=== PATIENT | female | born 1995 | race Caucasian/White ===

== ENCOUNTER 2016-11-20 22:51 | Emergency (ER) | payer OTHER ==
[~2016-11-20] VITALS: Ht 149.9 cm; Wt 70.0 kg
[2016-11-20 22:52] VITALS: BP 115/59; PULSE 99; RESP 20; TEMP 97.7; O2SAT 100
[2016-11-20 23:01] VITALS: BP 104/56; PULSE 86; RESP 18; TEMP 98.4; O2SAT 98
[2016-11-20] MEDS ORDERED: ASCO1CHW7 CHEW (23:01)
--- NOTE | 2016-11-20 23:28 | PD ---
HPI Chief Complaint: Chest Pain Time Seen by Provider: 23:08 Travel History International Travel<30 days: No Contact w/Intl Traveler<30days: No Traveled to known affect area: No History of Present Illness HPI The patient is 21 year old female reportedly at 23 weeks gestation who presents to the [facility] emergency department with a history of sudden onset of back pain between her shoulder blades that began approximately 30 minutes prior to arrival while she was lying down preparing to go to sleep. She reports that the pain radiated into the right shoulder, right chest and right arm. She reports that she felt short of breath with it. She denies having any lower extremity edema, calf pain, or erythema. She denies having any prior history of DVT or PE. She denies having any family history of blood clots. She reports that her is being monitored by Dr. Andrade. She reports that she has been feeling the baby move well. She denies having any vaginal bleeding or vaginal discharge. The patient reports that the pain is a squeezing sensation. She reports that it has begun to improved since arriving in the emergency department. She denies having any trauma to the area or doing any heavy lifting. She denies taking anything for pain prior to arrival. She denies any acid reflux or heartburn symptoms. The patient denies recent fevers , cough, congestion, neck pain, abdominal pain, vomiting, diarrhea, urinary symptoms, or neurologic symptoms. LMP: May 28, 2016. [facility] Past Medical History Narrative Medical The patient's past medical history is reportedly none. Medical History: Denies Significant Hx Diminished Hearing: No Influenza Vaccination: No ?: LMP: 05/28 : 1 Para: 0 Miscarriage: 0 : 0 Past Surgical History Narrative Surgical The patient denies any past surgical history. Surgical History: No Previous Surgery Social History Alcohol Use: No Tobacco Use: No Substance Use: No Allergies-Medications (Allergen,Severity, Reaction): Coded Allergies: No Known Allergies (Unverified , 11/20/16) Reported Meds & Prescriptions Reported Meds & Active Scripts Active Reported Vitamin C Adult Gummies (Ascorbic Acid) 125 Mg Chew 125 Mg CHEW DAILY Review of Systems Except as stated in HPI: all other systems reviewed are Neg General / Constitutional: No: Fever Eyes: No: Visual changes HENT: No: Headaches Cardiovascular: Positive: Chest Pain or Discomfort (right-sided), No: Palpitations, Irregular Rhythm, Tachycardia, Diaphoresis, Dyspnea on exertion, Edema Respiratory: Positive: Shortness of Breath, No: Cough, Orthopnea Gastrointestinal: No: Nausea, Vomiting, Diarrhea, Abdominal Pain, Changes in Bowel Habits, Indigestion, Loss of Appetite Genitourinary: No: Dysuria, Flank Pain, Discharge, Vaginal Bleeding Musculoskeletal: Positive: Myalgias, Pain Skin: No Rash Neurologic: No: Weakness Psychiatric: No: Depression Endocrine: No: Polydipsia Hematologic/Lymphatic: No: Easy Bruising Physical Exam Narrative General: The patient is a well-developed well-nourished female in no acute distress. The patient's heart rate is in the 70s to 80s, O2 saturation on room air is 99- 100%. Head and Neck exam: Head is normocephalic atraumatic. Eyes: Pupils are equal round and reactive to light. Nose: Midline septum with pink mucous membranes Mouth: Dentition unremarkable. Moist mucus membranes. Posterior oropharynx is not erythematous. No tonsillar hypertrophy. Uvula midline. Airway patent. Neck: No palpable lymphadenopathy. No nuchal rigidity. No thyromegaly. No spinous process tenderness to palpation, no step-off or crepitus, no erythema or ecchymosis. Cardiovascular: Regular rate and rhythm without murmurs, gallops, or rubs. No pulse deficit to the extremities. Lungs: Clear to auscultation bilaterally. No wheezes, rhonchi, or rales. Abdomen: Soft, without tenderness to palpation in all 4 quadrants of the abdomen. No guarding, rebound, or rigidity. Normal bowel sounds are audible. The patient has prominence of the lower abdomen consistent with early . No tenderness on palpation. Extremities: No clubbing, cyanosis, or edema. 2+ pulses in all 4 extremities. No calf tenderness on palpation. Negative Homans sign. No palpable cords. The patient on examination of the right arm, reports having pain that radiates into the right side of her back with flexion of her shoulder. The patient reports having triceps tenderness on palpation. Back: No spinous process tenderness to palpation. No costovertebral angle tenderness to palpation. The patient on examination is noted to have tenderness along the paraspinal muscles just medial to the right scapula. There is no spasm noted. There is no ecchymosis or erythema. Neurologic Exam: Grossly nonfocal. Skin Exam: No rash noted. Intact skin that is warm and dry. Data Data Last Documented VS Vital Signs Date Time Temp Pulse Resp B/P Pulse Ox O2 Delivery O2 Flow Rate FiO2 11/20/16 23:05 99 11/20/16 23:01 98.4 86 18 104/56 11/20/16 22:52 Room Air Orders Electrocardiogram (11/20/16 23:20) Complete Blood Count With Diff (11/20/16 23:20) Comprehensive Metabolic Panel (11/20/16 23:20) Creatine Kinase (Cpk) (11/20/16 23:20) Ckmb (Isoenzyme) Profile (11/20/16 23:20) Troponin I (11/20/16 23:20) Urinalysis - C+S If Indicated (11/20/16 23:20) Magnesium (Mg) (11/20/16 23:20) Iv Access Insert/Monitor (11/20/16 23:20) Ecg Monitoring (11/20/16 23:20) Oximetry (11/20/16 23:20) Ed Poc Ultrasound (11/20/16 23:20) Acetaminophen (Tylenol) (11/20/16 23:30) Urine Culture (11/20/16 23:15) Ceftriaxone Inj (Rocephin Inj) (11/21/16 00:45) Ed Poc Ultrasound (11/21/16 00:46) Labs Laboratory Tests Test 11/20/16 23:15 White Blood Count 13.6 TH/MM3 Red Blood Count 3.96 MIL/MM3 Hemoglobin 11.0 GM/DL Hematocrit 33.4 % Mean Corpuscular Volume 84.3 FL Mean Corpuscular Hemoglobin 27.9 PG Mean Corpuscular Hemoglobin 33.0 % Concent Red Cell Distribution Width 14.0 % Platelet Count 270 TH/MM3 Mean Platelet Volume 9.3 FL Neutrophils (%) (Auto) 65.6 % Lymphocytes (%) (Auto) 25.2 % Monocytes (%) (Auto) 7.8 % Eosinophils (%) (Auto) 1.2 % Basophils (%) (Auto) 0.2 % Neutrophils # (Auto) 8.9 TH/MM3 Lymphocytes # (Auto) 3.4 TH/MM3 Monocytes # (Auto) 1.1 TH/MM3 Eosinophils # (Auto) 0.2 TH/MM3 Basophils # (Auto) 0.0 TH/MM3 CBC Comment DIFF FINAL Differential Comment Urine Color YELLOW Urine Turbidity CLOUDY Urine pH 7.0 Urine Specific [place] 1.012 Urine Protein NEG mg/dL Urine Glucose (UA) NEG mg/dL Urine Ketones NEG mg/dL Urine Occult Blood NEG Urine Nitrite NEG Urine Bilirubin NEG Urine Urobilinogen LESS THAN 2.0 MG/DL Urine Leukocyte Esterase SMALL Urine WBC 6 /hpf Urine Squamous Epithelial 21 /hpf Cells Urine Transitional Epithelial <1 /hpf Cells Urine Amorphous Sediment OCC Urine Bacteria MANY /hpf Urine Mucus FEW /lpf Microscopic Urinalysis Comment CULTURE INDICATED Sodium Level 139 MEQ/L Potassium Level 3.5 MEQ/L Chloride Level 104 MEQ/L Carbon Dioxide Level 24.4 MEQ/L Anion Gap 11 MEQ/L Blood Urea Nitrogen 8 MG/DL Creatinine 0.49 MG/DL Estimat Glomerular Filtration 161 ML/MIN Rate Random Glucose 96 MG/DL Calcium Level 8.5 MG/DL Magnesium Level 1.6 MG/DL Total Bilirubin 0.1 MG/DL Aspartate Amino Transf 7 U/L (AST/SGOT) Alanine Aminotransferase 26 U/L (ALT/SGPT) Alkaline Phosphatase 70 U/L Total Creatine Kinase 48 U/L Troponin I LESS THAN 0.02 NG/ML Total Protein 6.8 GM/DL Albumin 3.0 GM/DL [facility] Medical Decision Making Medical Screen Exam Complete: Yes Emergency Medical Condition: Yes Medical Record Reviewed: Yes Differential Diagnosis Acute coronary syndrome, versus pulmonary embolism, versus musculoskeletal strain, versus pneumothorax, versus pleurisy Narrative Course During the course of the patients emergency department visit, the patients history, examination, and differential diagnosis were reviewed with the patient. The patient had IV access obtained and blood work sent for analysis. The patient's patient was placed on a chief of party with oximetry and blood pressure monitoring. The patient on examination is low probability for PE. The patient has no signs of a pneumothorax with a normal oxygen saturation and equal breath sounds bilaterally, therefore a chest x-ray risk outweighs the benefit in this patient who is currently . EKG done on this patient shows a normal sinus rhythm, heart rate of 83, occasional premature atrial contractions were noted, no other acute abnormality, no ST segment elevation. T waves are inverted in V1. No ST segment depression. The patient was provided Tylenol for pain. The patients laboratory studies were reviewed and remarkable for urinalysis that shows evidence of bacteriuria. The patient was given Rocephin 1 g IV. A white count of 13.6, hemoglobin 11, platelets 270 with a normal differential, CMP is remarkable for a creatinine of 0.49, total bilirubin 0.1, AST 7, CPK and troponin I within normal limits. Reexamination prior to the ultrasound, the patient was sleeping soundly. The patient reports that she feels improved. Emergency Department Pelvic ultrasound was performed with patient consent. The curvilinear probe was used in the transverse and sagittal views within the suprapubic region revealing a single intrauterine . heart rate was 140. Second trimester was noted. The baby was active on examination. The patient is resting comfortably and feels better, is alert and in no distress. The patients results and examination findings were discussed with the patient The repeat examination is unremarkable and benign. The history, exam , diagnostic testing, and current condition do not suggest any significant pathology to warrant further testing, continued ED treatment, admission, or surgical evaluation at this point. The vital signs have been stable. The patient does not have uncontrollable pain, intractable vomiting, or other significant symptoms. The patient's condition is stable and appropriate for discharge. The patient will pursue further outpatient evaluation with a primary care physician or other designated or consulting physician as indicated in the discharge instructions. The patient expressed understanding and was agreeable with this plan. Diagnosis Primary Impression: Back pain affecting Additional Impression: Bacteriuria during in second trimester Patient Instructions: General Instructions, Musculoskeletal Pain (ED), Urinary Tract Infection in (ED) Additional Instructions: Take Tylenol 650 mg by mouth every 6 hours as needed for discomfort. Follow-up with your [employer] for reexamination this week. Med/Other Pt SpecificInfo: Prescription(s) given Scripts Nitrofurantoin Monohydrate Macrocrystals (Macrobid)100 Mg [id number] Mg PO BID 10 Days Ref 0 Prov:Mackenzie Thompson MD 11/21/16 Disposition: 01 DISCHARGE HOME Condition: Stable Mackenzie Thompson MD Nov 20, 2016 23:28
[2016-11-20] MEDS ORDERED: ACETAMINOPHEN 325 MG TAB PO ONE (23:30)
[2016-11-20 23:53] LABS: AUTOMATED NEUTROPHIL # 8.9 TH/MM3 (1.8-7.7); BASOPHIL % 0.2 % (0.0-2.0); EOSINOPHIL # 0.2 TH/MM3 (0-0.4); EOSINOPHIL % 1.2 % (0.0-4.0); HEMATOCRIT 33.4 % (35.0-46.0); HEMO FLAGS DIFF FINAL; LYMPH % 25.2 % (9.0-44.0); LYMPHOCYTE # 3.4 TH/MM3 (1.0-4.8); MEAN CELL VOLUME 84.3 FL (80.0-100.0); MEAN CORPUSCULAR HEMOGLOBIN 27.9 PG (27.0-34.0); MONO % 7.8 % (0.0-8.0); NEUT % 65.6 % (16.0-70.0); PLATELET COUNT 270 TH/MM3 (150-450); RED BLOOD COUNT 3.96 MIL/MM3 (4.00-5.30); WHITE BLOOD COUNT 13.6 TH/MM3 (4.0-11.0)
[2016-11-20 23:56] LABS: BACTERIA, URINE MANY /hpf; BLOOD, URINE NEG (NEG); COMMENT (UR) CULTURE INDICATED; CULTURE IF INDICATED CULTURE INDICATED; GLUCOSE,URINE NEG (NEG); KETONE, URINE NEG (NEG); MUCUS URINE FEW /lpf (OCC); NITRITE,URINE NEG (NEG); SQUAMOUS EPITHELIAL CELL URINE 21 /hpf (0-5); TRANSITIONAL EPI CELLS, URINE <1 /hpf; URINE COLOR YELLOW (YELLW/STRAW)
[2016-11-21 00:12] LABS: ANION GAP 11 MEQ/L (5-15); AST (GOT) 7 U/L (16-38); BICARBONATE 24.4 MEQ/L (21.0-32.0); BLOOD UREA NITROGEN 8 MG/DL (7-18); CHLORIDE 104 MEQ/L (98-107); GLOMERULAR FILTRATION RATE 161 ML/MIN (>89); MAGNESIUM 1.6 MG/DL (1.5-2.5); POTASSIUM 3.5 MEQ/L (3.5-5.1); SODIUM (NA) 139 MEQ/L (136-145)
[2016-11-21 00:16] LABS: ALKALINE PHOSPHATASE 70 U/L (45-117); ALT (GPT) 26 U/L (9-42); TOTAL BILIRUBIN ADULT 0.1 MG/DL (0.2-1.0)
[2016-11-21 00:21] LABS: CREATINE KINASE 48 U/L (26-192)
[2016-11-21] MEDS ORDERED: cefTRIAXone INJ 1,000 MG in SODIUM CHLORIDE 0.9% INJ 100 ML IV ONE (00:45)
[2016-11-21] MEDS ORDERED: MACR100C2 PO (01:11)
--- NOTE | 2016-11-21 08:27 | EKG ---
Date Performed: 11/21/2016 Time Performed: 00:51:26 PTAGE: 21 years EKG: Sinus rhythm NORMAL ECG NO PREVIOUS TRACING DOCTOR: Jairo Aviles Interpretating Date/Time 11/21/2016 08:25:21
== END 2016-11-21 01:51 | disposition home or self-care (01) ==
LOC: NEPE 22:51
DX: O26.92 Pregnancy related conditions, unspecified, second trimester (principal); R82.71 Bacteriuria; M54.9 Dorsalgia, unspecified; B96.20 Unspecified Escherichia coli [E. coli] as the cause of diseases classified elsewhere; Z3A.23 23 weeks gestation of pregnancy
CPT/HCPCS: 80053; 81001; 82550; 83735; 84484; 85025; 87077; 87086; 87186; 93005; 96374; 99285; J0696

== ENCOUNTER 2016-11-26 00:49 | Emergency (ER) | payer OTHER ==
[~2016-11-26 00:49] MED LIST: ASCO1CHW7 CHEW; MACR100C2 PO
[2016-11-26 00:51] VITALS: BP 127/67; PULSE 110; RESP 20; TEMP 97.4; O2SAT 99
[2016-11-26 02:08] VITALS: BP 101/58; PULSE 90; RESP 18
[2016-11-26 02:13] LABS: AUTOMATED NEUTROPHIL # 10.4 TH/MM3 (1.8-7.7); BASOPHIL % 0.2 % (0.0-2.0); EOSINOPHIL # 0.2 TH/MM3 (0-0.4); EOSINOPHIL % 1.4 % (0.0-4.0); HEMATOCRIT 30.3 % (35.0-46.0); HEMO FLAGS DIFF FINAL; LYMPH % 18.2 % (9.0-44.0); LYMPHOCYTE # 2.6 TH/MM3 (1.0-4.8); MEAN CELL VOLUME 83.3 FL (80.0-100.0); MEAN CORPUSCULAR HEMOGLOBIN 28.5 PG (27.0-34.0); MEAN CORPUSCULAR HGB CONC 34.2 % (32.0-36.0); NEUT % 74.2 % (16.0-70.0); PLATELET COUNT 231 TH/MM3 (150-450); RED BLOOD COUNT 3.64 MIL/MM3 (4.00-5.30); RED CELL DISTRIBUTION WIDTH 13.5 % (11.6-17.2)
[2016-11-26 02:23] LABS: AMYLASE 35 U/L (25-115)
--- NOTE | 2016-11-26 02:24 | PD ---
HPI Chief Complaint Pain in the upper abdomen Date Seen: Nov 26, 2016 Time Seen: 01:37 Travel History International Travel<30 Days: No Contact w/Intl Traveler<30Days: No Known Affected Area: No History of Present Illness HPI The patient is a 21-year-old primigravida at 26 weeks gestation who presents with her second episode of upper abdominal pain like this in the last week. She states that 1 week ago she experienced the same problem where she was resting in bed and began experiencing pain in the mid upper abdomen and right upper quadrant which radiated to her back between her shoulder blades. She denies any fever, anorexia, nausea or vomiting, acholic stools, diarrhea, change in bowel or bladder habits. She denies shortness of breath, cough, hemoptysis. She has not identified any alleviating maneuvers, she reports having used no medication to alleviate symptoms and the pain is worse with palpation in the epigastrium. Her evaluation in the emergency room on 20 November included normal EKG normal CBC and CMP. She was treated at the time of discharge for urinary tract infection continues to take Macrodantin. Para: 0 : 1 Miscarriage: 0 : 0 History Past Medical History Medical History: Denies Significant Hx Past Surgical History Surgical History: No Previous Surgery Family History Family History: Negative Social History Alcohol Use: No Tobacco Use: No Substance Abuse: No Allergies-Medications (Allergen,Severity, Reaction): Coded Allergies: *MDRO Multi-Drug Resistant Organism (Verified Adverse Reaction, Unknown, ) ESBL E.Coli (urine)-11/20/16 Home Meds Active Scripts Nitrofurantoin Monohydrate Macrocrystals (Macrobid)100 Mg [id number] Mg PO BID 10 Days Ref 0 Prov:Mackenzie Thompson MD 11/21/16 Reported Medications Ascorbic Acid (Vitamin C Adult Gummies)125 Mg [id number] Mg CHEW DAILY #30 TAB Ref 0 11/20/16 Review of Systems Except as stated in HPI: all other systems reviewed are Neg Physical Exam Narrative GENERAL: Well-nourished, well-developed patient. SKIN: Warm and dry. HEAD: Normocephalic and atraumatic. EYES: No scleral icterus. No injection or drainage. ENT: No nasal drainage noted. Mucous membranes pink. Airway patent. NECK: Supple, trachea midline. No JVD. CARDIOVASCULAR: Regular rate and rhythm without murmurs, gallops, or rubs. RESPIRATORY: Breath sounds equal bilaterally. No accessory muscle use. ABDOMEN/GI: Abdomen soft, tender in the right upper quadrant and epigastrium, bowel sounds present, no rebound, no guarding Gravid to [-] weeks size Fundal Height: [25-] GENITOURINARY: External Genitalia: intact and normal in appearance BUS glands: [-] Cervix: [-] Dilatation: [-] Effacement: [-] Station: [-] Presentation: [-] Membranes: [intact or ruptured] Uterine Contractions: [-] FHT's: Category: [-] Baseline: [-150 with episode of tachycardia resolved with lateral positioning ] Reactive: [-] Variability: [Average-] Decels: [-] EXTREMITIES: No cyanosis or edema. BACK: Nontender without obvious deformity. No CVA tenderness. NEUROLOGICAL: Awake and alert. Motor and sensory grossly within normal limits. Five out of 5 muscle strength in all muscle groups. Normal speech. MDM Medical Record Reviewed: Yes Narrative Course / MDM Assessment: 26 week intrauterine with upper abdominal and right upper quadrant pain radiating to the back of uncertain origin. I'm concerned that there may be an intra-abdominal process evolving. Less likely would be cardiac or pulmonary embolism events. Plan: Repeat CBC, CMP, amylase, lipase, abdominal ultrasound. Addendum: The patient is reporting significant improvement in her symptoms and is now sleeping. Addendum: The patient remains completely asymptomatic. The CBC was unremarkable. Amylase and lipase are both normal. The abdominal ultrasound does confirm the presence of gallstones without inflammatory changes. I reviewed the implications of gallstones and the need for follow-up. Arrest patient to contact Dr. Andrade for possible general surgical referral. We discussed dietary restrictions to hopefully avoid additional attacks. Warning signs were reviewed with the patient. She expressed understanding of the situation and her questions were answered. Diagnosis Diagnosis: Primary Impression: 26 weeks gestation of Additional Impression: Cholelithiasis affecting in second trimester, antepartum Disposition: 01 DISCHARGE HOME Condition: Good Adal Chambers MD Nov 26, 2016 02:24
[2016-11-26 02:42] LABS: BACTERIA, URINE OCC /hpf; BLOOD, URINE NEG (NEG); COMMENT (UR) CULT NOT INDICATED; CULTURE IF INDICATED CULT NOT INDICATED; GLUCOSE,URINE NEG (NEG); KETONE, URINE NEG (NEG); NITRITE,URINE NEG (NEG); SQUAMOUS EPITHELIAL CELL URINE 6 /hpf (0-5); URINE COLOR YELLOW (YELLW/STRAW)
[2016-11-26 02:58] VITALS: BP 100/59; PULSE 92; RESP 16
--- NOTE | 2016-11-26 05:09 | RADRPT ---
EXAM DATE/TIME: 11/26/2016 03:56 [facility] COMPARISON: No previous studies available for comparison. INDICATIONS : Epigastric and right upper quadrant pain radiating to chest and back. MEDICAL HISTORY : . 26 weeks gestation. Abdominal pain. SURGICAL HISTORY : None. ENCOUNTER: Initial ACUITY: 1 week PAIN SCORE: 5/10 LOCATION: Right upper quadrant and epigastric. MEASUREMENTS: LIVER: 15.8 cm length COMMON DUCT: 5 mm RIGHT KIDNEY: 13.6 x 4.8 x 5.1 cm LEFT KIDNEY: 13.2 x 5.3 x 5.7 cm SPLEEN: 12.8 cm length AORTA: 1.7cm maximal FINDINGS: Ultrasound of the upper abdomen demonstrates normal echogenicity of the liver. No intrahepatic or ext ra hepatic ductal dilatation is seen. There is hepatopedal flow through the portal vein. The pancrea s is not visualized secondary to overlying bowel gas. There are multiple stones within the gallbladde r without wall thickening or pericholecystic fluid the largest measuring 8 mm. There is mild bilatera l hydronephrosis in this 26 week patient likely physiologic. The spleen is normal in size an d free of focal defects. The visualized portion of the aorta and inferior vena cava are unremarkable. CONCLUSION: 1. Cholelithiasis without ductal dilatation. Walt Chu MD on November 26, 2016 at 5:03 Board Certified Radiologist. This report was verified electronically.
== END 2016-11-26 08:25 | disposition home or self-care (01) ==
LOC: HOBED 00:49
DX: O99.612 Diseases of the digestive system complicating pregnancy, second trimester (principal); K80.20 Calculus of gallbladder without cholecystitis without obstruction; Z3A.26 26 weeks gestation of pregnancy
CPT/HCPCS: 76700; 81001; 82150; 83690; 85025; 96360; 96361

== ENCOUNTER 2017-02-19 04:41 | Emergency (ER) | payer OTHER ==
--- NOTE | 2017-02-19 05:15 | PD ---
HPI Chief Complaint upper abdominal pain Date Seen: Feb 19, 2017 Time Seen: 05:13 Travel History International Travel<30 Days: No Contact w/Intl Traveler<30Days: No Known Affected Area: No History of Present Illness HPI This is a 21y/o at 38w1d who presents to the [facility] with upper abdominal tenderness, denies nausea/vomiting, no aggravating/alleviating factors. She had been diagnosed with gallstones in 11/2016 and was seen here for evaluation. She has not been seen by a general surgeon as yet. Pt denies vaginal bleeding, contractions or leakage of fluid with reports of active movements. Para: 0 : 1 Miscarriage: 0 : 0 History Past Medical History Narrative Medical Cholithiasis diagnosed in November Medical History: Denies Significant Hx Past Surgical History Surgical History: No Previous Surgery Family History Family History: Negative Social History Alcohol Use: No Tobacco Use: No Substance Abuse: No Allergies-Medications (Allergen,Severity, Reaction): Coded Allergies: *MDRO Multi-Drug Resistant Organism (Verified Adverse Reaction, Unknown, ) ESBL E.Coli (urine)-11/20/16 Home Meds Active Scripts Nitrofurantoin Monohydrate Macrocrystals (Macrobid)100 Mg [id number] Mg PO BID 10 Days Ref 0 Prov:Mackenzie Thompson MD 11/21/16 Reported Medications Ascorbic Acid (Vitamin C Adult Gummies)125 Mg [id number] Mg CHEW DAILY #30 TAB Ref 0 11/20/16 Review of Systems Except as stated in HPI: all other systems reviewed are Neg Physical Exam Narrative GENERAL: Well-nourished, well-developed patient, writhing around in pain SKIN: Warm and dry. HEAD: Normocephalic and atraumatic. EYES: No scleral icterus. No injection or drainage. ENT: No nasal drainage noted. Mucous membranes pink. Airway patent. NECK: Supple, trachea midline. No JVD. CARDIOVASCULAR: Regular rate and rhythm without murmurs, gallops, or rubs. RESPIRATORY: Breath sounds equal bilaterally. No accessory muscle use. BREASTS: Bilateral exam showed no masses , no retractions, no nipple discharge. ABDOMEN/GI: Abdomen soft, tender to minimal touch at the ruq, bowel sounds present, no rebound, no guarding Fundal height: 37cm GENITOURINARY: VE: c/s/p FHT's: Category: 1 tracing, active fetus Contractions: some irritability, no contractions EXTREMITIES: No cyanosis or edema. BACK: Nontender without obvious deformity. No CVA tenderness. NEUROLOGICAL: Awake and alert. Motor and sensory grossly within normal limits. Five out of 5 muscle strength in all muscle groups. Normal speech. Data Data Vital Signs Reviewed: Yes Orders Vital Signs (Adult) .ON ADMISSION (02/19/17 05:10) ^ Labor Status (02/19/17 05:10) Urinalysis - C+S If Indicated (02/19/17 05:10) ^ Non Stress Test (02/19/17 05:10) Cbc No Diff, Includes Plts (02/19/17 05:10) Comprehensive Metabolic Panel (02/19/17 05:10) Uric Acid (02/19/17 05:10) Protein Creat Ratio, Random Ur (02/19/17 05:10) Ed Poc Ultrasound (02/19/17 05:12) Labs Laboratory Tests Test 02/19/17 02/19/17 04:50 05:20 Urine Color YELLOW Urine Turbidity CLOUDY Urine pH 6.5 Urine Specific [place] 1.019 Urine Protein TRACE mg/dL Urine Glucose (UA) NEG mg/dL Urine Ketones NEG mg/dL Urine Occult Blood NEG Urine Nitrite NEG Urine Bilirubin NEG Urine Urobilinogen LESS THAN 2.0 MG/DL Urine Leukocyte Esterase MOD Urine RBC 1 /hpf Urine WBC 3 /hpf Urine Squamous Epithelial 61 /hpf Cells Urine Bacteria MANY /hpf Urine Mucus FEW /lpf Microscopic Urinalysis Comment CULTURE INDICATED Urine Random Creatinine 126 MG/DL Urine Random Total Protein 37 MG/DL Urine Protein/Creatinine Ratio 0.29 White Blood Count 11.7 TH/MM3 Red Blood Count 4.08 MIL/MM3 Hemoglobin 11.1 GM/DL Hematocrit 33.6 % Mean Corpuscular Volume 82.5 FL Mean Corpuscular Hemoglobin 27.2 PG Mean Corpuscular Hemoglobin 32.9 % Concent Red Cell Distribution Width 13.3 % Platelet Count 222 TH/MM3 Mean Platelet Volume 8.9 FL Sodium Level 139 MEQ/L Potassium Level 3.9 MEQ/L Chloride Level 108 MEQ/L Carbon Dioxide Level 21.7 MEQ/L Anion Gap 9 MEQ/L Blood Urea Nitrogen 10 MG/DL Creatinine 0.55 MG/DL Estimat Glomerular Filtration 141 ML/MIN Rate Random Glucose 82 MG/DL Uric Acid 5.0 MG/DL Calcium Level 8.5 MG/DL Total Bilirubin 0.3 MG/DL Aspartate Amino Transf 17 U/L (AST/SGOT) Alanine Aminotransferase 22 U/L (ALT/SGPT) Alkaline Phosphatase 118 U/L Total Protein 6.3 GM/DL Albumin 2.8 GM/DL Amylase Level 36 U/L Lipase 84 U/L Ultrasound: no gallstones, no gallbladder thickening, mild sludge noted MDM Medical Record Reviewed: Yes Interpretation(s) routine course with gallstones which have now resolved Plan 21y/o at 38w1d who presented with severe RUQ pain, likely passage of gallstones but no gallbladder wall thickening noted on ultrasound -normal RUQ ultrasound, previously gallstones seen in 11/2016 -no evidence of labor -reassuring status -PCR of 0.29 -normal blood pressures -UTI, will treat, f/u urine cultures due to h/o MDRO Diagnosis Diagnosis: Primary Impression: RUQ abdominal pain Additional Impression: UTI (urinary tract infection) in in third trimester Disposition: 01 DISCHARGE HOME Scripts Nitrofurantoin Monohydrate Macrocrystals (Macrobid)100 Mg [id number] Mg PO BID 7 Days Ref 0 Prov:Cristina Saleh MD 02/19/17 Patient Instructions: Early Labor Signs (ED) Additional Instructions: F/u with Dr. Andrade on Monday as scheduled Cristina Saleh MD Feb 19, 2017 05:15
[2017-02-19 05:34] VITALS: BP 114/69; PULSE 78
[2017-02-19 05:34] LABS: HEMATOCRIT 33.6 % (35.0-46.0); MEAN CELL VOLUME 82.5 FL (80.0-100.0); MEAN CORPUSCULAR HEMOGLOBIN 27.2 PG (27.0-34.0); MEAN CORPUSCULAR HGB CONC 32.9 % (32.0-36.0); PLATELET COUNT 222 TH/MM3 (150-450); RED BLOOD COUNT 4.08 MIL/MM3 (4.00-5.30); RED CELL DISTRIBUTION WIDTH 13.3 % (11.6-17.2); REVIEW FLAG FINAL; WHITE BLOOD COUNT 11.7 TH/MM3 (4.0-11.0)
[2017-02-19 05:43] LABS: BACTERIA, URINE MANY /hpf; BLOOD, URINE NEG (NEG); COMMENT (UR) CULTURE INDICATED; CULTURE IF INDICATED CULTURE INDICATED; GLUCOSE,URINE NEG (NEG); KETONE, URINE NEG (NEG); MUCUS URINE FEW /lpf (OCC); NITRITE,URINE NEG (NEG); PH, URINE 6.5 (5.0-8.5); SQUAMOUS EPITHELIAL CELL URINE 61 /hpf (0-5); URINE COLOR YELLOW (YELLW/STRAW)
[2017-02-19 05:56] LABS: ALT (GPT) 22 U/L (9-42); ANION GAP 9 MEQ/L (5-15); AST (GOT) 17 U/L (16-38); BICARBONATE 21.7 MEQ/L (21.0-32.0); BLOOD UREA NITROGEN 10 MG/DL (7-18); CHLORIDE 108 MEQ/L (98-107); GLOMERULAR FILTRATION RATE 141 ML/MIN (>89); POTASSIUM 3.9 MEQ/L (3.5-5.1); SODIUM (NA) 139 MEQ/L (136-145)
[2017-02-19 05:58] LABS: ALKALINE PHOSPHATASE 118 U/L (45-117); TOTAL BILIRUBIN ADULT 0.3 MG/DL (0.2-1.0)
[2017-02-19 06:12] LABS: AMYLASE 36 U/L (25-115)
[2017-02-19] MEDS ORDERED: ONDANSETRON HCL 4 MG/2 ML VIAL IV PUSH ONE (06:30)
[2017-02-19] MEDS ORDERED: MORPHINE SULFATE 4 MG/ML INJ IV PUSH ONE ×2 (06:30→08:00)
--- NOTE | 2017-02-19 07:26 | RADRPT ---
EXAM DATE/TIME: 02/19/2017 06:38 [facility] COMPARISON: No previous studies available for comparison. INDICATIONS : Right upper quadrant pain. MEDICAL HISTORY : . MDRO. Gallstones. 37 weeks . SURGICAL HISTORY : None. ENCOUNTER: Subsequent ACUITY: 1 day PAIN SCORE: 9/10 LOCATION: Right upper quadrant MEASUREMENTS: LIVER: 15.9 cm length COMMON DUCT: 3 mm RIGHT KIDNEY: 12.7 x 6.0 x 5.4 cm FINDINGS: LIVER: Normal echotexture without focal lesion or ductal dilatation. COMMON DUCT: No intraluminal mass or stone visualized. GALLBLADDER: Contains no stones, demonstrates no wall thickening or pericholecystic fluid. The mild gallbladder s ludge. PANCREAS: The bowel gas obscures much of the pancreas. RIGHT KIDNEY: No evidence of hydronephrosis, stone, or mass. There is physiologic prominence of the renal pelvis s econdary to the patient's . CONCLUSION: No significant abnormality seen. Maria T Stinson MD on February 19, 2017 at 7:21 Board Certified Radiologist. This report was verified electronically.
[2017-02-19] MEDS ORDERED: MACR100C2 PO (07:44)
[2017-02-19 07:46] VITALS: BP 99/59; PULSE 82; RESP 18; TEMP 97.9
== END 2017-02-19 08:07 | disposition home or self-care (01) ==
LOC: HOBED 04:41
DX: O23.43 Unspecified infection of urinary tract in pregnancy, third trimester (principal); R10.11 Right upper quadrant pain; Z3A.38 38 weeks gestation of pregnancy
CPT/HCPCS: 59025; 76705; 80053; 81001; 82150; 82570; 83690; 84156; 84550; 85027; 87086; 96361; 96374; 96375; 99284; J2270; J2405

== ENCOUNTER → 2017-03-08 | Emergency (ER) | payer OTHER ==
[~2017-03-08] MED LIST changes: +IBUP-232 PO; +PREN29TA PO
[2017-03-08 12:22] VITALS: BP 101/59; PULSE 85
[2017-03-08 12:24] VITALS: RESP 18; TEMP 98.2
--- NOTE | 2017-03-08 12:38 | PD ---
HPI Chief Complaint decreased FM today Date Seen: Mar 08, 2017 Travel History International Travel<30 Days: No Contact w/Intl Traveler<30Days: No History of Present Illness HPI 21 yo @ 39w2d with CHERRY 03-13-2017. care with Dr. Andrade. Uncomplicated . Patient c/o +FM but decreased this AM. Denies UC, LOF VB. History Past Medical History Narrative Medical migraines Obstetric History Obstetric History Past Surgical History Surgical History: No Previous Surgery Family History Family History: Negative Social History Alcohol Use: No Tobacco Use: No Substance Abuse: No Allergies-Medications (Allergen,Severity, Reaction): Coded Allergies: *MDRO Multi-Drug Resistant Organism (Verified Adverse Reaction, Unknown, ) ESBL E.Coli (urine)-11/20/16 Home Meds Active Scripts Nitrofurantoin Monohydrate Macrocrystals (Macrobid)100 Mg [id number] Mg PO BID 7 Days Ref 0 Prov:Cristina Saleh MD 02/19/17 Nitrofurantoin Monohydrate Macrocrystals (Macrobid)100 Mg [id number] Mg PO BID 10 Days Ref 0 Prov:Mackenzie Thompson MD 11/21/16 Reported Medications Ascorbic Acid (Vitamin C Adult Gummies)125 Mg [id number] Mg CHEW DAILY #30 TAB Ref 0 11/20/16 Review of Systems General / Constitutional: No: Fever, Chills Eyes: No: Blurred Vision, Visual changes HENT: No: Headaches, Lightheadedness Cardiovascular: No: Chest Pain or Discomfort, Palpitations Respiratory: No: Cough, Short of Breath Gastrointestinal: No: Nausea, Diarrhea, Abdominal Pain Genitourinary: No: Urgency, Vaginal Bleeding Musculoskeletal: No: Limited ROM, Edema Skin: No Rash Neurologic: No: Weakness, Focal Abnormalities Physical Exam Vital Signs Date Time Temp Pulse Resp B/P Pulse Ox O2 Delivery O2 Flow Rate FiO2 03/08/17 12:24 98.2 18 03/08/17 12:22 85 101/59 Narrative GENERAL: Well-nourished, well-developed patient. NAD SKIN: Warm and dry. HEAD: Normocephalic and atraumatic. EYES: No scleral icterus. No injection or drainage. ENT: No nasal drainage noted. Mucous membranes pink. Airway patent. CARDIOVASCULAR: Regular rate VSS RESPIRATORY: No accessory muscle use. ABDOMEN/GI: Abdomen soft, non-tender,no rebound, no guarding Gravid GENITOURINARY: External Genitalia: intact and normal in appearance BUS glands: [-] Cervix: [-] Dilatation: [-] Effacement: [-] Station: [-] Presentation: [-] Membranes: [intact or ruptured] Uterine Contractions: [-] FHT's: Category: I Baseline: 120 Reactive: +accelerations Variability: mod Decels: [-] EXTREMITIES: No cyanosis or edema. BACK: Normal ROM NEUROLOGICAL: Awake and alert. Motor and sensory grossly within normal limits. Normal speech. Data Data Vital Signs Reviewed: Yes Orders Vital Signs (Adult) .ON ADMISSION (03/08/17 12:15) ^ Labor Status (03/08/17 12:15) ^ Non Stress Test (03/08/17 12:15) MDM Interpretation(s) BEDSIDE US: LEIGHANN 12.9cm Cephalic lie Narrative Course / MDM 39 weeks Uncomplicated decreased FM today CAT I - reactive NST LEIGHANN 12.9cm No s/s labor or UC +FM normal at this time Plan D/c home Kick counts hydrations f/u with Dr. Andrade for KATERIN Diagnosis Diagnosis: Primary Impression: Decreased movement affecting management of in third trimester Additional Impressions: 39 weeks gestation of NST (non-stress test) reactive Cori Carrasco MD Mar 08, 2017 12:38
== END | disposition home or self-care (01) ==
LOC: HOBED 12:05
DX: O36.8130 Decreased fetal movements, third trimester, not applicable or unspecified (principal); Z3A.39 39 weeks gestation of pregnancy
CPT/HCPCS: 59025; 76815

== ENCOUNTER 2017-03-20 08:51 | Inpatient (IN) | payer OTHER ==
[2017-03-20] VITALS (86 sets, daily range): BP systolic 87–120; BP diastolic 45–86; PULSE 65–119; RESP 18; TEMP 97.4–98.7
[~2017-03-20] VITALS: Ht 149.9 cm; Wt 78.9 kg
[~2017-03-20 08:51] MED LIST changes: -IBUP-232 PO; -PREN29TA PO
[2017-03-20] MEDS ORDERED: PREN29TA PO (09:54)
[2017-03-20] MEDS ORDERED: LACTATED RINGER'S 1000 ML INJ 1,000 ML IV PRN (09:56)
[2017-03-20] MEDS ORDERED: OXYTOCIN 30 UNITS-500ML PREMIX 500 ML IV ONE ×2 (10:00→19:00)
[2017-03-20] MEDS ORDERED: CITRIC ACID-SODIUM CITRATE LIQ 30 ML UDC PO SCH (10:00)
[2017-03-20] MEDS ORDERED: SODIUM CHLORID 0.9% 500 ML INJ 500 ML IV PRN (10:00)
[2017-03-20] MEDS ORDERED: LIDOCAINE HCL 1% 50 ML VIAL INFIL PRN (10:00)
[2017-03-20] MEDS ORDERED: LIDOCAINE HCL 1% 50 ML VIAL I-DERMAL PRN (10:00)
[2017-03-20] MEDS ORDERED: MINERAL OIL 10 ML VIAL TOPICAL PRN (10:00)
[2017-03-20] MEDS ORDERED: OXYTOCIN 30 UNITS-500ML PREMIX 500 ML IV SCH (10:00)
[2017-03-20] MEDS ORDERED: ONDANSETRON HCL 4 MG/2 ML VIAL IV PRN (10:00)
[2017-03-20] MEDS ORDERED: SODIUM CHLOR 0.9% 1000 ML INJ 1,000 ML IV PRN (10:16)
[2017-03-20 10:17] LABS: BASOPHIL % 0.5 % (0.0-2.0); EOSINOPHIL # 0.1 TH/MM3 (0-0.4); EOSINOPHIL % 1.1 % (0.0-4.0); HEMO FLAGS DIFF FINAL; LYMPH % 24.8 % (9.0-44.0); LYMPHOCYTE # 2.2 TH/MM3 (1.0-4.8); MEAN CELL VOLUME 80.7 FL (80.0-100.0); MEAN CORPUSCULAR HGB CONC 32.3 % (32.0-36.0); MONO % 6.3 % (0.0-8.0); NEUT % 67.3 % (16.0-70.0); PLATELET COUNT 206 TH/MM3 (150-450); RED BLOOD COUNT 4.33 MIL/MM3 (4.00-5.30); RED CELL DISTRIBUTION WIDTH 13.7 % (11.6-17.2); WHITE BLOOD COUNT 8.9 TH/MM3 (4.0-11.0)
[2017-03-20 10:27] LABS: BACTERIA, URINE MOD /hpf; BLOOD, URINE NEG (NEG); COMMENT (UR) CULTURE INDICATED; CULTURE IF INDICATED CULTURE INDICATED; GLUCOSE,URINE NEG (NEG); KETONE, URINE NEG (NEG); MUCUS URINE FEW /lpf (OCC); NITRITE,URINE NEG (NEG); PH, URINE 6.5 (5.0-8.5); SQUAMOUS EPITHELIAL CELL URINE 37 /hpf (0-5); TRANSITIONAL EPI CELLS, URINE <1 /hpf; URINE COLOR YELLOW (YELLW/STRAW)
[2017-03-20] MEDS: LACTATED RINGER'S 1000 ML INJ 1,000 ML IV SCH ×2 (10:31→15:17)
[2017-03-20] MEDS ORDERED: fentaNYL 2MCG-BUPIV 0.125% INJ 100 ML ONE (13:59)
[2017-03-20] MEDS ORDERED: ePHEDrine/NS 25 MG/5 ML SYR ONE (13:59)
[2017-03-20] MEDS ORDERED: ePHEDrine/NS 25 MG/5 ML SYR IV PRN (15:00)
[2017-03-20] MEDS ORDERED: fentaNYL 2MCG-BUPIV 0.125% 100 ML EPIDURAL SCH (15:00)
[2017-03-20] MEDS ORDERED: DO NOT ADMINISTER ANTICOAGULANTS PRN (15:00)
[2017-03-20] MEDS ORDERED: NO SYSTEM NARCOTICS PRN (15:00)
[2017-03-20] MEDS ORDERED: DIPHTH/TETANUS/ACEL PERTUSSIS (BOOSTER) 0.5 ML VIAL/PFS IM ONE (16:00)
[2017-03-20] MEDS ORDERED: MEASLES, MUMPS, RUBELLA VACCINE 0.5 ML VIAL SQ ONE (16:00)
--- NOTE | 2017-03-20 16:18 | MH ---
cc: Yuni ANDRADE MD DATE OF ADMISSION: 03/20/2017 REASON FOR ADMISSION 1. Intrauterine at 41 weeks. 2. Postdates. 3. Inducible cervix. HISTORY OF PRESENT ILLNESS Ms. Olivares is a 21-year-old white female, para 0-0-0-0, who is 41 weeks by early ultrasound and dates. She presents to the labor floor for induction of labor with artificial rupture of membranes and possibly Pitocin because of postdates. She denies any ___ uterine contractions. She denies any bleeding or rupture of membranes. She reports good movement. PAST OBSTETRICAL HISTORY Para 0-0-0-0. PAST GYNECOLOGIC HISTORY Her cultures were negative in 11 of 16. PAST MEDICAL HISTORY Her past medical history is remarkable for a UTI in , anemia. PAST SURGICAL HISTORY Negative. SOCIAL HISTORY She is . She never smoked. She never drank. 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 She lives with her spouse. FAMILY HISTORY She is adopted. ALLERGIES No known drug allergies. MEDICATIONS Current medications are vitamins one p.o. q. Day. Iron one p.o. b.i.d. PHYSICAL EXAMINATION GENERAL: Her physical exam reveals a well-developed, well-nourished female, in no acute distress. CHEST: Chest is clear to auscultation and percussion. HEART: Heart has a regular rate and rhythm without murmur. ABDOMEN: The abdomen is gravid, nontender. Fundus is nontender. CERVIX: Her cervix on admission is 2-3, 80% vertex -2. EXTREMITIES: No clubbing, cyanosis, edema. ASSESSMENT/PLAN 1. Intrauterine at 41 weeks. 2. Inducible cervix. Go ahead and give her artificial rupture of membranes and maybe give her some Pitocin to try to accomplish a vaginal delivery. I think her pelvis is adequate, although she is somewhat short stature. 3. GBS is negative. Yuni Andrade MD RJV/TLL /1:59 PM /3:49 PM
--- NOTE | 2017-03-20 18:50 | PD.OB.DELI ---
Delivery Date: March 20, 2017 Anesthesia: Epidural Episiotomy: Midline Vaginal Delivery: Normal Presentation: Occiput anterior Nuchal Cord: None Delayed cord clamping (45 sec): Yes One Minute : 8 Five Minute : 9 Weight: 7/0 Placenta: Spontaneous delivery, Intact, 3 vessel cord Laceration: Episiotomy, 2 deg Repair: Vicryl running Additional Information Very nice delivery of baby Armstrong. Small 2nd degree episiotomy repaired to perfection. \ both grandmas and Antonietta were in the room. Yuni Andrade MD March 20, 2017 18:50
[2017-03-20] MEDS ORDERED: ALUMINUM/MAGNESIUM/SIMETH 30 ML CUP PO PRN (19:00)
[2017-03-20] MEDS ORDERED: BENZOCAINE 20% TOPICAL SPRAY 60 ML CAN TOPICAL PRN (19:00)
[2017-03-20] MEDS ORDERED: WITCH HAZEL 50%/GLYCERIN 12.5% 40 PAD JAR TOPICAL PRN (19:00)
[2017-03-20] MEDS ORDERED: DOCUSATE SODIUM 50 MG/SENNA 8.6 MG TAB PO PRN (19:00)
[2017-03-20] MEDS ORDERED: ONDANSETRON ODT 4 MG TAB PO PRN (19:00)
[2017-03-20] MEDS ORDERED: ACETAMINOPHEN 325 MG TAB PO PRN (19:00)
[2017-03-20] MEDS ORDERED: SODIUM CHLORIDE 0.9% FLUSH 10 ML FLUSH IV FLUSH PRN (19:00)
[2017-03-20] MEDS ORDERED: ZOLPIDEM TARTRATE 5 MG TAB PO PRN (19:00)
[2017-03-20] MEDS ORDERED: oxyCODONE/ACETAMINOPHEN 5 MG/325 MG TAB PO PRN ×2 (19:00)
[2017-03-20] MEDS ORDERED: SODIUM CHLORIDE 0.9% FLUSH 10 ML FLUSH IV FLUSH SCH (21:00)
[2017-03-20] MEDS: IBUPROFEN 600 MG TAB PO PRN (21:54)
[2017-03-21] MEDS: IBUPROFEN 600 MG TAB PO PRN (05:07)
[2017-03-21 08:00] VITALS: BP 89/53; PULSE 74; RESP 16; TEMP 98.2
[2017-03-21] MEDS: PRENATAL VITAMIN CHEWABLE TAB PO SCH (09:29)
--- NOTE | 2017-03-21 13:35 | HHI.OB ---
Subjective Post Day: 1 Objective Vitals/I&O Vital Signs Date Time Temp Pulse Resp B/P Pulse Ox O2 Delivery O2 Flow Rate FiO2 03/21/17 08:00 98.2 74 16 89/53 03/20/17 20:35 98.1 74 18 107/63 03/20/17 20:01 96 103/61 03/20/17 20:00 18 03/20/17 19:46 94 89/68 03/20/17 19:45 18 03/20/17 19:31 108 117/55 03/20/17 19:30 18 03/20/17 19:15 97.4 88 18 107/65 03/20/17 19:01 96 110/56 03/20/17 18:41 98.7 03/20/17 18:32 18 03/20/17 17:35 82 03/20/17 17:30 119 120/67 03/20/17 17:30 98 03/20/17 17:25 73 03/20/17 17:20 88 03/20/17 17:15 84 112/68 03/20/17 17:15 72 03/20/17 17:05 75 03/20/17 17:00 73 03/20/17 17:00 81 107/56 03/20/17 16:55 86 03/20/17 16:50 84 03/20/17 16:45 76 98/61 03/20/17 16:45 77 03/20/17 16:40 76 03/20/17 16:35 76 03/20/17 16:30 81 95/74 03/20/17 16:30 77 03/20/17 16:25 76 03/20/17 16:20 87 03/20/17 16:15 90 97/64 03/20/17 16:15 77 03/20/17 16:11 78 105/67 03/20/17 16:05 74 03/20/17 16:02 72 87/45 03/20/17 16:01 70 03/20/17 16:00 75 03/20/17 15:50 76 03/20/17 15:45 86 99/62 03/20/17 15:45 76 03/20/17 15:40 83 03/20/17 15:35 85 03/20/17 15:30 98.1 03/20/17 15:30 79 98/58 03/20/17 15:30 79 03/20/17 15:18 18 03/20/17 15:15 82 03/20/17 15:15 79 100/59 03/20/17 15:11 82 102/63 03/20/17 15:10 81 03/20/17 15:05 77 03/20/17 15:00 71 03/20/17 15:00 87 114/66 03/20/17 14:47 78 112/56 03/20/17 14:45 80 03/20/17 14:42 73 113/57 03/20/17 14:40 87 03/20/17 14:37 96 101/70 03/20/17 14:35 81 03/20/17 14:30 77 107/65 03/20/17 14:30 82 03/20/17 14:26 70 113/55 03/20/17 14:25 90 03/20/17 14:20 89 03/20/17 14:15 83 03/20/17 14:10 88 03/20/17 14:05 78 03/20/17 14:00 71 03/20/17 13:50 97 03/20/17 13:45 81 03/20/17 13:40 74 03/20/17 13:35 86 Objective Remarks GENERAL: Well-nourished, well-developed patient. CARDIOVASCULAR: Regular rate and rhythm without murmurs, gallops, or rubs. RESPIRATORY: Breath sounds equal bilaterally. No accessory muscle use. ABDOMEN/GI: Abdomen soft, non-tender. Fundus: Firm, non-tender at umbilicus. GENITOURINARY: Light to moderate bleeding. EXTREMITIES: No cyanosis or edema, non-tender, without signs of DVT. Medications and IVs Current Medications Medications (Trade) Dose Ordered Sig/Agnieszka Route Start Time Stop Time Status Last Admin (NS Flush) 2 ml BID IV FLUSH 03/20/17 21:00 (NS Flush) 2 ml UNSCH PRN IV FLUSH 03/20/17 19:00 (Tylenol) 650 mg Q4H PRN PO 03/20/17 19:00 (Motrin) 600 mg Q6H PRN PO 03/20/17 19:00 03/21/17 05:07 (Percocet 5-325 Mg) 1 tab Q4H PRN PO 03/20/17 19:00 (Percocet 5-325 Mg) 2 tab Q4H PRN PO 03/20/17 19:00 (Americaine 20% Top Spr) 1 spray Q4H PRN TOPICAL 03/20/17 19:00 03/20/17 21:53 (Tucks Pads) 1 applic QID PRN TOPICAL 03/20/17 19:00 03/20/17 21:53 (Sheri-Colace) 2 tab Q12H PRN PO 03/20/17 19:00 03/20/17 21:56 (Ambien) 5 mg HS PRN PO 03/20/17 19:00 (Mag-Al Plus Susp Liq) 15 ml Q8H PRN PO 03/20/17 19:00 (Zofran Odt) 4 mg Q6H PRN PO 03/20/17 19:00 Non-Formulary Medication 1 tab DAILY PO 03/21/17 09:00 UNV Assessment/Plan Problem List: (1) Normal vaginal delivery Plan: ROUTINE Assessment and Plan PT DOING WELL BONDING AND PAIN WELL MANAGED WITH MOTRIN ROUTINE CARE Discharge Planning DC HOME TOMORROW Johana Clements March 21, 2017 13:35
--- NOTE | 2017-03-21 13:37 | HHI.DCPOC ---
Discharge Care Plan Diagnosis: (1) Normal vaginal delivery Your Health Problems Are: Vaginal delivery Report Symptoms to Your Doctor -Temperate above 100.5 degrees -Redness, of incision or excessive or foul smelling drainage -Unusual pain or calf pain -Increased vaginal bleeding -Painful or difficulty urinating -Feelings of extreme sadness or anxiety after 2 weeks Goals to Promote Your Health * To prevent worsening of your condition and complications * To maintain your health at the optimal level Directions to Meet Your Goals Take your medications as prescribed Follow your dietary instruction Follow activity as directed Ensure plenty of rest for recovery Drink fluids for hydration Keep your appointments as scheduled Take your immunizations and boosters as scheduled If your symptoms worsen call your PCP, if no PCP go to Urgent Care Center or Emergency Room Smoking is Dangerous to Your Health. Avoid second hand smoke Call the 24-hour crisis hotline for domestic abuse at Johana Clements March 21, 2017 13:37
--- NOTE | 2017-03-21 13:39 | HHI.DS ---
Admission Date March 20, 2017 at 08:51 Discharge Date: March 22, 2017 Admitting Diagnosis TERM INDUCTION Diagnosis: Delivery Date: March 20, 2017 Vaginal Delivery: Normal : Female Brief History 41 WEEK INDUCTION Hospital Course ROUTINE Pt Condition on Discharge: Good Discharge Disposition: Discharge Home Discharge Instructions Diet Instructions: As Tolerated, No Restrictions Additional Diet Instructions: Drink at least 8 - 16 oz bottles of water a day Activities You Can Perform: Shower Only-No Bath, Sitz Bath Activities to Avoid: Lifting/Bending, Sexual Activity Additional Activity Instruc.: No driving until off pain medications Do not lift anything heavier than your baby in an infant carrier Follow up Referrals: AGRONOMY RESEARCH MANAGER - [address] [facility] New Medications: Ibuprofen (Ibuprofen) 600 Mg Tab 600 MG PO Q6H moderate pain #30 Ref 1 TAB Continued Medications: Vit-Iron Carbonyl ( Plus Iron 29-1 mg) 1 Tab Tab 1 TAB PO DAILY Nutritional Supplement #30 Ref 0 TAB Johana Clements March 21, 2017 13:39
[2017-03-21 15:20] VITALS: BP 102/56; PULSE 67; RESP 18; TEMP 98.4
[2017-03-21 20:00] VITALS: BP 109/57; PULSE 85; RESP 19; TEMP 98.7
[2017-03-22] MEDS ORDERED: IBUP-232 PO (08:29)
[2017-03-22] MEDS: PRENATAL VITAMIN CHEWABLE TAB PO SCH (09:17)
--- NOTE | 2017-03-22 09:25 | HHI.OB ---
Subjective Post Day: 2 Objective Vitals/I&O Vital Signs Date Time Temp Pulse Resp B/P Pulse Ox O2 Delivery O2 Flow Rate FiO2 03/21/17 20:00 98.7 03/21/17 20:00 85 19 109/57 03/21/17 15:20 98.4 67 18 03/21/17 15:20 102/56 Objective Remarks GENERAL: Well-nourished, well-developed patient. CARDIOVASCULAR: Regular rate and rhythm without murmurs, gallops, or rubs. RESPIRATORY: Breath sounds equal bilaterally. No accessory muscle use. ABDOMEN/GI: Abdomen soft, non-tender. Fundus: Firm, non-tender at umbilicus. GENITOURINARY: Light to moderate bleeding. EXTREMITIES: No cyanosis or edema, non-tender, without signs of DVT. Medications and IVs Current Medications Medications (Trade) Dose Ordered Sig/Agnieszka Route Start Time Stop Time Status Last Admin (NS Flush) 2 ml BID IV FLUSH 03/20/17 21:00 (NS Flush) 2 ml UNSCH PRN IV FLUSH 03/20/17 19:00 (Tylenol) 650 mg Q4H PRN PO 03/20/17 19:00 (Motrin) 600 mg Q6H PRN PO 03/20/17 19:00 03/21/17 05:07 (Percocet 5-325 Mg) 1 tab Q4H PRN PO 03/20/17 19:00 (Percocet 5-325 Mg) 2 tab Q4H PRN PO 03/20/17 19:00 (Americaine 20% Top Spr) 1 spray Q4H PRN TOPICAL 03/20/17 19:00 03/20/17 21:53 (Tucks Pads) 1 applic QID PRN TOPICAL 03/20/17 19:00 03/20/17 21:53 (Sheri-Colace) 2 tab Q12H PRN PO 03/20/17 19:00 03/20/17 21:56 (Ambien) 5 mg HS PRN PO 03/20/17 19:00 (Mag-Al Plus Susp Liq) 15 ml Q8H PRN PO 03/20/17 19:00 (Zofran Odt) 4 mg Q6H PRN PO 03/20/17 19:00 Non-Formulary Medication 1 tab DAILY PO 03/21/17 09:00 UNV Assessment/Plan Problem List: (1) Normal vaginal delivery Plan: ROUTINE Assessment and Plan PT DOING WELL reports painful, she will see sales consultant residential manager PAIN WELL MANAGED WITH MOTRIN ROUTINE CARE Discharge Planning DC HOME TODAY Johana Clements March 22, 2017 09:25
== END 2017-03-22 13:59 | disposition home or self-care (01) | DRG 775 ==
LOC: H2EB 08:51 → H1EA 20:26
PROVIDERS: ADMIT Obstetrics & Gynecology; ATTEND Obstetrics & Gynecology
PROC: 10E0XZZ Delivery of Products of Conception, External Approach (ICD-10-PCS; principal; 2017-03-20)
PROC: 0W8NXZZ Division of Female Perineum, External Approach (ICD-10-PCS; 2017-03-20)
PROC: 10907ZC Drainage of Amniotic Fluid, Therapeutic from Products of Conception, Via Natural or Artificial Opening (ICD-10-PCS; 2017-03-20)
PROC: 3E033VJ Introduction of Other Hormone into Peripheral Vein, Percutaneous Approach (ICD-10-PCS; 2017-03-20)
DX: O48.0 Post-term pregnancy (principal); Z37.0 Single live birth; Z3A.41 41 weeks gestation of pregnancy
CPT/HCPCS: 81001; 85025; 86900; 86901; 87086; J2590; J7120